=== PATIENT | male | born 1980 | race Hispanic/Latino ===

== ENCOUNTER 2018-03-25 19:37 | Emergency (ER) | payer OTHER | END 2018-03-25 21:14 | disposition home or self-care (01) | LOC: EDH 19:37 | DX: M54.5 Low back pain (principal); Z72.0 Tobacco use ==

== ENCOUNTER 2021-11-14 00:13 | Emergency (ER) | payer OTHER ==
[~2021-11-14] VITALS: Ht 170.2 cm; Wt 70.8 kg
[2021-11-14 00:42] VITALS: BP 124/90
[2021-11-14] MEDS ORDERED: GABAPENTIN 300 MG CAPSULE PO SCH (01:30)
[2021-11-14] MEDS ORDERED: CYCLOBENZAPRINE HCL 10 MG TABLET PO ONE (01:30)
[2021-11-14] MEDS ORDERED: KETOROLAC 30MG VIAL (30MG/ML) IM ONE (01:30)
[2021-11-14] MEDS ORDERED: DEXAMETHASONE SOD PHOSPHATE 4 MG/ML 1ML VIAL IM ONE (01:30)
== END 2021-11-14 02:41 | disposition home or self-care (01) ==
LOC: EDH 00:13
DX: M54.50 Low back pain, unspecified (principal); Z79.1 Long term (current) use of non-steroidal anti-inflammatories (NSAID); Z79.52 Long term (current) use of systemic steroids
CPT/HCPCS: 99284; 96372 ×2; J1100; J1885